=== PATIENT | male | born 1970 | race African-American/Black ===

== ENCOUNTER 2019-11-28 17:00 | Inpatient (IN) | payer OTHER ==
[2019-11-28 20:13] VITALS: BMI 23.1
--- NOTE | 2019-11-28 23:53 | HP ---
COWS - Scale Resting Pulse: 0= [place] 80 or Below Sweatin=Flushed/Facial Moisture Restless Observation: 0= Sits Still Pupil Size: 0= Normal to Room Light Bone or Joint Aches: 4=Acute Joint/Muscle Pain Runny Nose/ Eye Tearin= Runny Nose/Eyes GI Upset > 30mins: 0= None Tremor Observation: 0= None Yawning Observation: 0= None Anxiety or Irritability: 2=Irritable/Anxious Goose Flesh Skin: 0=Smooth Skin COWS Score: 10 CIWA Score - Admission Criteria [facility] Guidelines: Admission for Medically Managed Detox: Requires at least one of the followin. CIWA greater than 12 2. Seizures within the past 24 hours 3. Delirium tremens within the past 24 hours 4. Hallucinations within the past 24 hours 5. Acute intervention needed for co occurring medical disorder 6. Acute intervention needed for co occurring psychiatric disorder 7. Severe withdrawal that cannot be handled at a lower level of care (continued vomiting, continued diarrhea, abnormal vital signs) requiring intravenous medication and/or fluids 8. Admission [facility] Chief Complaint: c/o heroin withdrawal Allergies/Adverse Reactions: Allergies Allergy/AdvReac Type Severity Reaction Status Date / Time Penicillins Allergy Verified 11/29/19 01:34 History of Present Illness: HERE FOR HEROIN DETOX. CLIENT IS REFERRED BY OUT REACH. HE REPORTS DAILY HEROIN USE. LAST USE 1 DAY AGO. PRESENTS TODAY WITH C/O WITHDRAWAL SX'S. UTOX + PAUL, FEN, MOP, MTD. CLIENT DENIES MMTP OR RECENT DETOX/ HOSP. FEELS MTD IS CUT WITH HEROIN. DENIES IVDU, AVH, BLACKOUTS, DRUG OVERDOSE. DENIES ANY SIGNIFICANT PERIOD OF CLEAN TIME IN THE PAST 1 YEAR. HOMELESS, UNEMPLOYED. DENIES LEGALS Exam Limitations: No Limitations - Ebola screening Have you traveled outside of the country in the last 21 days: No Have you had contact with anyone from an Ebola affected area: No Have you been sick,other than usual withdrawal symptoms: No Do you have a fever: No - Review of Systems Constitutional: Chills, Loss of Appetite, Malaise, Night Sweats, Changes in sleep EENT: reports: Nose Congestion Respiratory: reports: No Symptoms reported Cardiac: reports: No Symptoms Reported GI: reports: Constipated (LBM 4 DAYS AGO), Nausea, Poor Appetite : reports: No Symptoms Reported Musculoskeletal: reports: Back Pain Integumentary: reports: Sweating Neuro: reports: No Symptoms reported Endocrine: reports: No Symptoms Reported Hematology: reports: No Symptoms Reported Psychiatric: reports: Orientated x3, Agitated (IRRITABLE), Anxious Other Systems: Reviewed and Negative Patient History - Patient Medical History Hx Anemia: No Hx Asthma: No Hx Chronic Obstructive Pulmonary Disease (COPD): No Hx Cancer: No Hx Cardiac Disorders: No Hx Congestive Heart Failure: No Hx Hypertension: No Hx Hypercholesterolemia: No Hx Pacemaker: No HX Cerebrovascular Accident: No Hx Seizures: No Hx Dementia: No Hx Diabetes: No Hx Gastrointestinal Disorders: No Hx Liver Disease: No Hx Genitourinary Disorders: No Hx Sexually Transmitted Disorders: No Hx Renal Disease (ESRD): No Hx Thyroid Disease: No Hx Human Immunodeficiency Virus (HIV): No Hx Hepatitis C: No Hx Depression: No Hx Suicide Attempt: No Hx Bipolar Disorder: No Hx Schizophrenia: No Other Medical History: DENIES - Patient Surgical History Past Surgical History: No - PPD History Previous Implant?: Yes Documented Results: Negative w/o proof Implanted On Prior [facility] Admission?: No PPD to be Administered?: Yes - Smoking Cessation Smoking history: Current every day smoker Have you smoked in the past 12 months: Yes Aproximately how many cigarettes per day: 2 Cigars Per Day: 0 Hx Chewing Tobacco Use: No Initiated information on smoking cessation: Yes 'Breaking Loose' booklet given: 11/28/19 - Substance & Tx. History Hx Alcohol Use: No Substance Use Type: Heroin Hx Substance Use Treatment: No - Substances abused Heroin Substance route: Inhalation Frequency: Daily Amount used: 5 to 6 bags Age of first use: 29 Date of last use: 11/27/19 Admission Physical Exam BHS - Vital Signs Vital Signs: Vital Signs - 24 hr 11/28/19 11/28/19 20:05 20:36 Temperature 98.4 F 98.4 F Pulse Rate 71 71 Respiratory 14 14 Rate Blood Pressure 101/67 101/67 - Physical General Appearance: Yes: Mild Distress, Irritable, Anxious HEENTM: Yes: EOMI, Normocephalic, Normal Voice, LUIS MIGUEL, Pharynx Normal, Other ( MISSING TEETH POOR DENTITION) Respiratory: Yes: Chest Non-Tender, Lungs Clear, Normal Breath Sounds, No Respiratory Distress, No Accessory Muscle Use Neck: Yes: No masses,lesions,Nodules, Supple, Trachea in good position Breast: Yes: Breasts Symetrical Cardiology: Yes: Regular Rhythm, Regular Rate, S1, S2 Abdominal: Yes: Normal Bowel Sounds, Non Tender, Soft Genitourinary: Yes: Within Normal Limits Back: Yes: Normal Inspection Musculoskeletal: Yes: full range of Motion, Gait Steady Extremities: Yes: Normal Capillary Refill, Normal Range of Motion, Non-Tender Neurological: Yes: Alert, Motor Strength 5/5 Integumentary: Yes: Clammy Lymphatic: Yes: Within Normal Limits - Diagnostic (1) Opioid dependence with withdrawal Current Visit: Yes Status: Acute (2) Nicotine dependence Current Visit: Yes Status: Acute Qualifiers: Nicotine product type: cigarettes Substance use status: uncomplicated Qualified Code(s): F17.210 - Nicotine dependence, cigarettes, uncomplicated Cleared for Admission S - Detox or Rehab [facility] Level of Care: Medically Managed Detox Regimen/Protocol: Methadone Claeared for Rehab Admission: No Breathalyzer - Breathalyzer Breathalyzer: 0 Urine Drug Screen - Test Device Lot number: [id number] Expiration date: 11/28/19 - Control Is test valid?: Yes - Results Drug screen NEGATIVE: No Urine drug screen results: PAUL-Cocaine, FEN-Fentanyl, MOP-Opiates, MTD-Methadone Inpatient Rehab Admission - Rehab Decision to Admit Inpatient rehab admission?: No
[2019-11-29] MEDS ORDERED: P-EPHED 60MG/TRIPROLIDI 2.5MG TABLET PO PRN (00:04)
[2019-11-29] MEDS ORDERED: MAG HYDROX/AL HYDROX/SIMETH 30 ML UNIT-DOSE CUP PO PRN (00:04)
[2019-11-29] MEDS ORDERED: ACETAMINOPHEN 325 MG TABLET (FP) PO PRN ×2 (00:04)
[2019-11-29] MEDS ORDERED: METHADONE HCL 10 MG TABLET (FOR DETOX USE ONLY) PO ONE ×2 (00:04→10:00)
[2019-11-29] MEDS ORDERED: MAGNESIUM CITRATE 300 ML BOTTLE PO PRN (00:04)
[2019-11-29] MEDS ORDERED: MENTHOL/PHENOL 1 EACH UD MM PRN (00:04)
[2019-11-29] MEDS ORDERED: guaiFENesin 200 MG/10 ML 10 ML UNIT-DOSE CUPS PO PRN (00:04)
[2019-11-29] MEDS ORDERED: hydrOXYzine PAMOATE 25 MG CAPSULE (FP) PO PRN (00:04)
[2019-11-29] MEDS ORDERED: cloNIDine HCL 0.1 MG TABLET PO PRN (00:04)
[2019-11-29] MEDS ORDERED: NICOTINE POLACRILEX 2 MG GUM BUC PRN (00:04)
[2019-11-29] MEDS ORDERED: MAGNESIUM HYDROX 2400MG/30ML ORAL SUSPENSION 30 ML CUP PO PRN (00:04)
[2019-11-29] MEDS ORDERED: DICYCLOMINE HCL 10 MG CAPSULE PO PRN (00:04)
[2019-11-29] MEDS ORDERED: BISMUTH SUBSALICYLATE 524 MG/30 ML UD PO PRN (00:04)
[2019-11-29] MEDS: METHOCARBAMOL 500 MG TABLET PO PRN ×3 (01:57→22:27)
[2019-11-29] MEDS: PRENATAL VITAMINS W/ FOLIC ACID TABLET (FP) PO SCH (09:34)
[2019-11-29] MEDS: NICOTINE 14 MG/24 HOURS TOPICAL PATCH TD SCH (09:36)
--- NOTE | 2019-11-29 10:45 | PN ---
BHS COWS - Scale Resting Pulse: 0= [place] 80 or Below Sweatin= No chills or Flushing Restless Observation: 0= Sits Still Pupil Size: 1= Pupils >than Normal Bone or Joint Aches: 1= Mild Discomfort Runny Nose/ Eye Tearin= Nasal Congestion GI Upset > 30mins: 1= Stomach Cramp Tremor Observation of Outstretched Hands: 1= Tremor [place], Not Seen Yawning Observation: 1= 1-2x During Session Anxiety or Irritability: 1=Feels Anxious/Irritable Goose Flesh Skin: 0=Smooth Skin COWS Score: 7 BHS Progress Note (SOAP) Subjective: 49 years old male admitted on 11/28/19 for opiate withdrawal sx management treating with methadone detox regiment reports too much methadone feeling uncomfortable modify methadone dosage to suit Mr Flores's preference Objective: 11/29/19 10:45 Vital Signs Temperature 98.7 F 11/29/19 08:42 Pulse Rate 65 11/29/19 08:42 Respiratory Rate 18 11/29/19 08:42 Blood Pressure 105/64 11/29/19 08:42 O2 Sat by Pulse Oximetry (%) 11/29/19 10:46 admission lab order had been cancelled reorder admission lab Assessment: 11/29/19 10:47 opiate withdrawal Plan: methadone regiment ekg with no comparison
--- NOTE | 2019-11-29 11:41 | EKG ---
Test Reason : Blood Pressure : / mmHG Vent. Rate : 066 BPM Atrial Rate : 066 BPM P-R Int : 168 ms QRS Dur : 088 ms QT Int : 398 ms P-R-T Axes : 029 078 031 degrees QTc Int : 417 ms NORMAL SINUS RHYTHM NORMAL ECG NO PREVIOUS ECGS AVAILABLE Confirmed by Michael Mantilla MD ([id number]) on 11/29/2019 11:40:43 AM Referred By: Confirmed By:Michael Mantilla MD
[2019-11-29] MEDS: clonazePAM 0.5 MG TABLET PO PRN ×2 (12:29→18:25)
[2019-11-29 18:20] LABS: PH,URINE 8.5 (5.0-8.0); URINE APPEARANCE CLEAR; URINE BILIRUBIN NEGATIVE (NEGATIVE); URINE COLOR YELLOW; URINE GLUCOSE (UA) NEGATIVE (NEGATIVE); URINE KETONE NEGATIVE (NEGATIVE); URINE LEUK ESTERASE NEGATIVE (NEGATIVE); URINE NITRITE NEGATIVE (NEGATIVE); URINE PROTEIN NEGATIVE (NEGATIVE); URINE UROBILINOGEN 0.2 mg/dL (0.2-1.0)
[2019-11-29] MEDS: THIAMINE HCL 100 MG TABLET (FP) PO SCH (22:27)
[2019-11-29] MEDS: MELATONIN 5 MG TABLETS PO PRN (22:27)
[2019-11-30] MEDS ORDERED: METHADONE HCL 5 MG TABLET (FOR DETOX USE ONLY) PO ONE (05:00)
--- NOTE | 2019-11-30 09:16 | PN ---
BHS COWS - Scale Resting Pulse: 0= [place] 80 or Below Sweatin= Chills/Flushing Restless Observation: 0= Sits Still Pupil Size: 1= Pupils >than Normal Bone or Joint Aches: 1= Mild Discomfort Runny Nose/ Eye Tearin= None GI Upset > 30mins: 1= Stomach Cramp Tremor Observation of Outstretched Hands: 1= Tremor [place], Not Seen Yawning Observation: 0= None Anxiety or Irritability: 1=Feels Anxious/Irritable Goose Flesh Skin: 0=Smooth Skin COWS Score: 6 BHS Progress Note (SOAP) Subjective: 49 years old male admitted on 11/28/19 for opiate withdrawal sx management treating with methadone detox regiment patient is actively involved with the behavior and psychosocial therapies groups and meetings discussed medication assisted treatment program and picking up narcan from pharmacy upon discharge Objective: 11/30/19 09:19 Vital Signs Temperature 98.2 F 11/30/19 06:26 Pulse Rate 59 L 11/30/19 06:26 Respiratory Rate 18 11/30/19 06:26 Blood Pressure 95/60 11/30/19 06:26 O2 Sat by Pulse Oximetry (%) Laboratory Last Values Urine Color Yellow 11/29/19 12:40 Urine Appearance Clear 11/29/19 12:40 Urine pH 8.5 (5.0-8.0) H 11/29/19 12:40 Ur Specific [place] 1.026 (1.010-1.035) 11/29/19 12:40 Urine Protein Negative (NEGATIVE) 11/29/19 12:40 Urine Glucose (UA) Negative (NEGATIVE) 11/29/19 12:40 Urine Ketones Negative (NEGATIVE) 11/29/19 12:40 Urine Blood Negative (NEGATIVE) 11/29/19 12:40 Urine Nitrite Negative (NEGATIVE) 11/29/19 12:40 Urine Bilirubin Negative (NEGATIVE) 11/29/19 12:40 Urine Urobilinogen 0.2 mg/dL (0.2-1.0) 11/29/19 12:40 Ur Leukocyte Esterase Negative (NEGATIVE) 11/29/19 12:40 lab noted Assessment: 11/30/19 09:19 opiate withdrawal Plan: methadone regiment
[2019-11-30 09:47] LABS: HEMATOCRIT 38.9 % (35.4-49); HEMOGLOBIN 12.9 GM/dL (11.7-16.9); MCH 29.6 pg (25.7-33.7); MCHC 33.1 g/dl (32.0-35.9); MEAN CELL VOLUME 89.2 fl (80-96); MEAN PLT VOLUME 6.7 fl (7.5-11.1); PLATELET COUNT 270 K/MM3 (134-434); RBC 4.36 M/mm3 (4.00-5.60); RDW 14.3 % (11.9-15.9); WHITE BLOOD COUNT 4.7 K/mm3 (4.0-10.0)
[2019-11-30 09:51] LABS: ALBUMIN 3.7 g/dl (3.4-5.0); BILIRUBIN,TOTAL 0.8 mg/dL (0.2-1); BLOOD UREA NITROGEN 15.7 mg/dL (7-18); CALCIUM 9.2 mg/dL (8.5-10.1); POTASSIUM 4.1 mmol/L (3.5-5.1); TOT PROT 7.6 g/dl (6.4-8.2)
[2019-11-30] MEDS ORDERED: METHADONE (DETOX) 20 MG, METHADONE (DETOX) 5 MG PO ONE (10:00)
[2019-11-30] MEDS: NICOTINE 14 MG/24 HOURS TOPICAL PATCH TD SCH (10:20)
[2019-11-30] MEDS: PRENATAL VITAMINS W/ FOLIC ACID TABLET (FP) PO SCH (10:21)
[2019-11-30] MEDS: CLOTRIMAZOLE 1% CREAM 15 GM TUBE TP SCH ×2 (12:40→22:51)
[2019-11-30] MEDS: clonazePAM 0.5 MG TABLET PO PRN (17:11)
[2019-11-30] MEDS: THIAMINE HCL 100 MG TABLET (FP) PO SCH (22:51)
[2019-12-01] MEDS ORDERED: METHADONE HCL 5 MG TABLET (FOR DETOX USE ONLY) PO ONE (05:00)
[2019-12-01] MEDS ORDERED: METHADONE HCL 10 MG TABLET (FOR DETOX USE ONLY) PO ONE (10:00)
[2019-12-01] MEDS: PRENATAL VITAMINS W/ FOLIC ACID TABLET (FP) PO SCH (10:35)
[2019-12-01] MEDS: NICOTINE 14 MG/24 HOURS TOPICAL PATCH TD SCH (10:36)
[2019-12-01] MEDS: CLOTRIMAZOLE 1% CREAM 15 GM TUBE TP SCH ×2 (10:36→22:40)
--- NOTE | 2019-12-01 10:54 | PN ---
BHS COWS - Scale Resting Pulse: 0= [place] 80 or Below Sweatin=Flushed/Facial Moisture Restless Observation: 0= Sits Still Pupil Size: 0= Normal to Room Light Bone or Joint Aches: 1= Mild Discomfort Runny Nose/ Eye Tearin= Runny Nose/Eyes GI Upset > 30mins: 0= None Tremor Observation of Outstretched Hands: 0= None Yawning Observation: 0= None Anxiety or Irritability: 2=Irritable/Anxious Goose Flesh Skin: 0=Smooth Skin COWS Score: 7 BHS Progress Note (SOAP) Subjective: Mr. Flores complains of difficulty sleeping, constipation, dry skin. Objective: 12/01/19 10:50 Laboratory Tests 11/29/19 11/30/19 11/30/19 12:40 08:00 08:00 WBC 4.7 RBC 4.36 Hgb 12.9 Hct 38.9 MCV 89.2 MCH 29.6 MCHC 33.1 RDW 14.3 Plt Count 270 MPV 6.7 L Sodium 140 Potassium 4.1 Chloride 104 Carbon Dioxide 29 Anion Gap 6 L BUN 15.7 Creatinine 1.0 Est GFR (CKD-EPI)AfAm 101.26 Est GFR (CKD-EPI)NonAf 87.37 Random Glucose 97 Calcium 9.2 Total Bilirubin 0.8 AST 16 ALT 17 Alkaline Phosphatase 72 Total Protein 7.6 Albumin 3.7 Urine Color Yellow Urine Appearance Clear Urine pH 8.5 H Ur Specific [place] 1.026 Urine Protein Negative Urine Glucose (UA) Negative Urine Ketones Negative Urine Blood Negative Urine Nitrite Negative Urine Bilirubin Negative Urine Urobilinogen 0.2 Ur Leukocyte Esterase Negative RPR Titer 11/30/19 08:00 WBC RBC Hgb Hct MCV MCH MCHC RDW Plt Count MPV Sodium Potassium Chloride Carbon Dioxide Anion Gap BUN Creatinine Est GFR (CKD-EPI)AfAm Est GFR (CKD-EPI)NonAf Random Glucose Calcium Total Bilirubin AST ALT Alkaline Phosphatase Total Protein Albumin Urine Color Urine Appearance Urine pH Ur Specific [place] Urine Protein Urine Glucose (UA) Urine Ketones Urine Blood Urine Nitrite Urine Bilirubin Urine Urobilinogen Ur Leukocyte Esterase RPR Titer Nonreactive Vital Signs - 24 hr 11/30/19 11/30/19 11/30/19 12:47 17:25 21:05 Temperature 98.5 F 99.8 F H 98.6 F Pulse Rate 69 59 L 73 Respiratory 18 18 16 Rate Blood Pressure 108/67 106/74 114/68 12/01/19 12/01/19 12/01/19 00:30 03:30 06:29 Temperature 98.1 F Pulse Rate 80 Respiratory 18 16 18 Rate Blood Pressure 126/87 12/01/19 08:35 Temperature 98.7 F Pulse Rate 65 Respiratory 18 Rate Blood Pressure 105/75 Pe Gnl: wdwn in no distress MS: awake, alert, nl mentation CN: EOMI, pupils 3mm Motor: moves all limbs normally Gait: steady in hallway Assessment: 12/01/19 10:51 1. Opioid use disorder 2. constipation relted to #1 3. complaints of dry skin 4, requests gabapentin for chronic leg and back pain Plan: 1. Opioid detox protocol, continue 2. Gabapentin 100 mg tid 3. Aveeno lotion
[2019-12-01] MEDS: GABAPENTIN 100 MG CAPSULE PO SCH ×2 (15:21→22:40)
--- NOTE | 2019-12-01 16:35 | CONSULT ---
[facility] Psychiatric Consult - Data Date of interview: 12/01/19 Admission source: [facility] Identifying data: Patient is a 49 year old single male, father of three, unemployed, homeless, and is not currently receiving financial assistance. This is patient's first admission to detox at [facility]. Patient admitted to for opiate and cocaine dependence. Substance Abuse History: Smoking Cessation. Smoking history: Current every day smoker. Have you smoked in the past 12 months: Yes. Aproximately how many cigarettes per day: 2. Cigars Per Day: 0. Hx Chewing Tobacco Use: No. Initiated information on smoking cessation: Yes. - Substance & Tx. History. Hx Alcohol Use: No. Substance Use Type: Heroin. Hx Substance Use Treatment: No. - Substances abused. Heroin. Substance route: Inhalation. Frequency: Daily. Amount used: 5 to 6 bags. Age of first use: 29. Date of last use: 01/11 Medical History: Denies. Endorses good health. Psychiatric History: Patient denies history of psychiatric hospitalization, outpatient care, and suicide attempt. At present patient reports poor sleep. Physical/Sexual Abuse/Trauma History: denies. Mental Status Exam - Mental Status Exam Alert and Oriented to: Time, Place, Person Cognitive Function: Good Patient Appearance: Well Groomed Mood: Withdrawn Affect: Mood Congruent Patient Behavior: Appropriate, Cooperative Speech Pattern: Clear, Appropriate Voice Loudness: Normal Thought Process: Intact, Goal Oriented Thought Disorder: Not Present Hallucinations: Denies Suicidal Ideation: Denies Homicidal Ideation: Denies Insight/Judgement: Poor Sleep: Poorly Appetite: Fair Muscle strength/Tone: Normal Gait/Station: Normal Psychiatric Findings - Problem List ([place] 1, 2,3) (1) Cocaine dependence Current Visit: Yes Status: Acute (2) Nicotine dependence Current Visit: Yes Status: Acute Qualifiers: Nicotine product type: cigarettes Substance use status: uncomplicated Qualified Code(s): F17.210 - Nicotine dependence, cigarettes, uncomplicated (3) Opioid dependence with withdrawal Current Visit: Yes Status: Acute (4) Substance-induced sleep disorder Current Visit: Yes Status: Acute - Initial Treatment Plan Initial Treatment Plan: Psychoeducation provided. Detoxification in progress. Will order Seroquel 50mg HS (as per patient's request). Benefits and side effects discussed. Verbal consent given.
[2019-12-01] MEDS: clonazePAM 0.5 MG TABLET PO PRN (18:08)
[2019-12-01] MEDS: THIAMINE HCL 100 MG TABLET (FP) PO SCH (22:40)
[2019-12-01] MEDS: QUEtiapine FUMARATE 50 MG TABLET PO SCH (22:40)
[2019-12-02] MEDS ORDERED: METHADONE HCL 10 MG TABLET (FOR DETOX USE ONLY) PO ONE (05:00)
[2019-12-02] MEDS: GABAPENTIN 100 MG CAPSULE PO SCH ×3 (06:21→21:44)
[2019-12-02] MEDS ORDERED: METHADONE (DETOX) 10 MG, METHADONE (DETOX) 5 MG PO ONE (10:00)
--- NOTE | 2019-12-02 10:33 | PN ---
BHS COWS - Scale Resting Pulse: 0= [place] 80 or Below Sweatin= Chills/Flushing Restless Observation: 1= Difficult to Sit Still Pupil Size: 0= Normal to Room Light Bone or Joint Aches: 2= Severe Diffuse Aches Runny Nose/ Eye Tearin= None GI Upset > 30mins: 0= None Tremor Observation of Outstretched Hands: 0= None Yawning Observation: 1= 1-2x During Session Anxiety or Irritability: 2=Irritable/Anxious Goose Flesh Skin: 0=Smooth Skin COWS Score: 7 S Progress Note (SOAP) Subjective: c/l chills, sweats, anxiety, and muscle aches. Objective: 12/02/19 10:34 Vital Signs 12/02/19 12/02/19 12/02/19 03:30 06:35 08:39 Temperature 97.2 F L 97.6 F Pulse Rate 62 68 Respiratory 16 18 18 Rate Blood Pressure 99/55 L 116/72 Laboratory Last Values WBC 4.7 K/mm3 (4.0-10.0) 11/30/19 08:00 RBC 4.36 M/mm3 (4.00-5.60) 11/30/19 08:00 Hgb 12.9 GM/dL (11.7-16.9) 11/30/19 08:00 Hct 38.9 % (35.4-49) 11/30/19 08:00 MCV 89.2 fl (80-96) 11/30/19 08:00 MCH 29.6 pg (25.7-33.7) 11/30/19 08:00 MCHC 33.1 g/dl (32.0-35.9) 11/30/19 08:00 RDW 14.3 % (11.9-15.9) 11/30/19 08:00 Plt Count 270 K/MM3 (134-434) 11/30/19 08:00 MPV 6.7 fl (7.5-11.1) L 11/30/19 08:00 Sodium 140 mmol/L (136-145) 11/30/19 08:00 Potassium 4.1 mmol/L (3.5-5.1) 11/30/19 08:00 Chloride 104 mmol/L (98-107) 11/30/19 08:00 Carbon Dioxide 29 mmol/L (21-32) 11/30/19 08:00 Anion Gap 6 MMOL/L (8-16) L 11/30/19 08:00 BUN 15.7 mg/dL (7-18) 11/30/19 08:00 Creatinine 1.0 mg/dL (0.55-1.3) 11/30/19 08:00 Est GFR (CKD-EPI)AfAm 101.26 11/30/19 08:00 Est GFR (CKD-EPI)NonAf 87.37 11/30/19 08:00 Random Glucose 97 mg/dL (74-106) 11/30/19 08:00 Calcium 9.2 mg/dL (8.5-10.1) 11/30/19 08:00 Total Bilirubin 0.8 mg/dL (0.2-1) 11/30/19 08:00 AST 16 U/L (15-37) 11/30/19 08:00 ALT 17 U/L (13-61) 11/30/19 08:00 Alkaline Phosphatase 72 U/L (45-117) 11/30/19 08:00 Total Protein 7.6 g/dl (6.4-8.2) 11/30/19 08:00 Albumin 3.7 g/dl (3.4-5.0) 11/30/19 08:00 Urine Color Yellow 11/29/19 12:40 Urine Appearance Clear 11/29/19 12:40 Urine pH 8.5 (5.0-8.0) H 11/29/19 12:40 Ur Specific [place] 1.026 (1.010-1.035) 11/29/19 12:40 Urine Protein Negative (NEGATIVE) 11/29/19 12:40 Urine Glucose (UA) Negative (NEGATIVE) 11/29/19 12:40 Urine Ketones Negative (NEGATIVE) 11/29/19 12:40 Urine Blood Negative (NEGATIVE) 11/29/19 12:40 Urine Nitrite Negative (NEGATIVE) 11/29/19 12:40 Urine Bilirubin Negative (NEGATIVE) 11/29/19 12:40 Urine Urobilinogen 0.2 mg/dL (0.2-1.0) 11/29/19 12:40 Ur Leukocyte Esterase Negative (NEGATIVE) 11/29/19 12:40 RPR Titer Nonreactive (NONREACTIVE) 11/30/19 08:00 Labs noted. Assessment: 12/02/19 10:35 AOX 3, in no respiratory distress. Full ROM, ambulating in the unit. Withdrawal symptoms. Plan: continue detox.
[2019-12-02] MEDS: CLOTRIMAZOLE 1% CREAM 15 GM TUBE TP SCH ×2 (11:40→21:55)
[2019-12-02] MEDS: NICOTINE 14 MG/24 HOURS TOPICAL PATCH TD SCH (11:40)
[2019-12-02] MEDS: PRENATAL VITAMINS W/ FOLIC ACID TABLET (FP) PO SCH (11:40)
[2019-12-02] MEDS: IBUPROFEN 400 MG TABLET (FP) PO PRN (19:44)
[2019-12-02] MEDS: THIAMINE HCL 100 MG TABLET (FP) PO SCH (21:44)
[2019-12-02] MEDS: MELATONIN 5 MG TABLETS PO PRN (21:44)
[2019-12-02] MEDS: QUEtiapine FUMARATE 50 MG TABLET PO SCH (21:44)
[2019-12-03] MEDS ORDERED: METHADONE HCL 5 MG TABLET (FOR DETOX USE ONLY) PO ONE (05:00)
[2019-12-03] MEDS: GABAPENTIN 100 MG CAPSULE PO SCH ×3 (06:22→21:32)
[2019-12-03] MEDS ORDERED: METHADONE HCL 10 MG TABLET (FOR DETOX USE ONLY) PO ONE ×2 (10:00)
[2019-12-03] MEDS: PRENATAL VITAMINS W/ FOLIC ACID TABLET (FP) PO SCH (10:02)
[2019-12-03] MEDS: CLOTRIMAZOLE 1% CREAM 15 GM TUBE TP SCH ×2 (10:02→21:34)
[2019-12-03] MEDS: NICOTINE 14 MG/24 HOURS TOPICAL PATCH TD SCH (10:02)
--- NOTE | 2019-12-03 14:30 | PN ---
BHS COWS - Scale Resting Pulse: 0= [place] 80 or Below Sweatin= Chills/Flushing Restless Observation: 0= Sits Still Pupil Size: 0= Normal to Room Light Bone or Joint Aches: 1= Mild Discomfort Runny Nose/ Eye Tearin= None GI Upset > 30mins: 0= None Tremor Observation of Outstretched Hands: 1= Tremor [place], Not Seen Yawning Observation: 0= None Anxiety or Irritability: 1=Feels Anxious/Irritable Goose Flesh Skin: 0=Smooth Skin COWS Score: 4 BHS Progress Note (SOAP) Subjective: 49 years old male admitted on 11/28/19 for opiate withdrawal sx management treating with methadone detox regiment feeling better today slept through the night less joints pain encourage narcan worm picker from pharmacy upon discharge Objective: 12/03/19 14:29 Vital Signs Temperature 99.1 F 12/03/19 12:46 Pulse Rate 71 12/03/19 12:46 Respiratory Rate 18 12/03/19 12:46 Blood Pressure 100/66 12/03/19 12:46 O2 Sat by Pulse Oximetry (%) Laboratory Last Values WBC 4.7 K/mm3 (4.0-10.0) 11/30/19 08:00 RBC 4.36 M/mm3 (4.00-5.60) 11/30/19 08:00 Hgb 12.9 GM/dL (11.7-16.9) 11/30/19 08:00 Hct 38.9 % (35.4-49) 11/30/19 08:00 MCV 89.2 fl (80-96) 11/30/19 08:00 MCH 29.6 pg (25.7-33.7) 11/30/19 08:00 MCHC 33.1 g/dl (32.0-35.9) 11/30/19 08:00 RDW 14.3 % (11.9-15.9) 11/30/19 08:00 Plt Count 270 K/MM3 (134-434) 11/30/19 08:00 MPV 6.7 fl (7.5-11.1) L 11/30/19 08:00 Sodium 140 mmol/L (136-145) 11/30/19 08:00 Potassium 4.1 mmol/L (3.5-5.1) 11/30/19 08:00 Chloride 104 mmol/L (98-107) 11/30/19 08:00 Carbon Dioxide 29 mmol/L (21-32) 11/30/19 08:00 Anion Gap 6 MMOL/L (8-16) L 11/30/19 08:00 BUN 15.7 mg/dL (7-18) 11/30/19 08:00 Creatinine 1.0 mg/dL (0.55-1.3) 11/30/19 08:00 Est GFR (CKD-EPI)AfAm 101.26 11/30/19 08:00 Est GFR (CKD-EPI)NonAf 87.37 11/30/19 08:00 Random Glucose 97 mg/dL (74-106) 11/30/19 08:00 Calcium 9.2 mg/dL (8.5-10.1) 11/30/19 08:00 Total Bilirubin 0.8 mg/dL (0.2-1) 11/30/19 08:00 AST 16 U/L (15-37) 11/30/19 08:00 ALT 17 U/L (13-61) 11/30/19 08:00 Alkaline Phosphatase 72 U/L (45-117) 11/30/19 08:00 Total Protein 7.6 g/dl (6.4-8.2) 11/30/19 08:00 Albumin 3.7 g/dl (3.4-5.0) 11/30/19 08:00 Urine Color Yellow 11/29/19 12:40 Urine Appearance Clear 11/29/19 12:40 Urine pH 8.5 (5.0-8.0) H 11/29/19 12:40 Ur Specific [place] 1.026 (1.010-1.035) 11/29/19 12:40 Urine Protein Negative (NEGATIVE) 11/29/19 12:40 Urine Glucose (UA) Negative (NEGATIVE) 11/29/19 12:40 Urine Ketones Negative (NEGATIVE) 11/29/19 12:40 Urine Blood Negative (NEGATIVE) 11/29/19 12:40 Urine Nitrite Negative (NEGATIVE) 11/29/19 12:40 Urine Bilirubin Negative (NEGATIVE) 11/29/19 12:40 Urine Urobilinogen 0.2 mg/dL (0.2-1.0) 11/29/19 12:40 Ur Leukocyte Esterase Negative (NEGATIVE) 11/29/19 12:40 RPR Titer Nonreactive (NONREACTIVE) 11/30/19 08:00 lab noted Assessment: 12/03/19 14:29 opiate withdrawal Plan: methadone regiment
[2019-12-03] MEDS: IBUPROFEN 400 MG TABLET (FP) PO PRN (21:31)
[2019-12-03] MEDS: QUEtiapine FUMARATE 50 MG TABLET PO SCH (21:32)
[2019-12-03] MEDS: THIAMINE HCL 100 MG TABLET (FP) PO SCH (21:32)
[2019-12-03] MEDS: MELATONIN 5 MG TABLETS PO PRN (21:33)
[2019-12-04] MEDS: GABAPENTIN 100 MG CAPSULE PO SCH (05:17)
[2019-12-04] MEDS ORDERED: METHADONE HCL 5 MG TABLET (FOR DETOX USE ONLY) PO ONE (06:00)
[2019-12-04 06:53] VITALS: BP 127/92; PULSE 76; TEMP 98
--- NOTE | 2019-12-04 09:01 | DS ---
[facility] Detox Discharge Summary Admission Date: 11/29/19 Discharge Date: 12/04/19 - History Present History: Opioid Dependence Additional Comments: 49 years old male admitted on 11/28/19 for opiate withdrawal sx management treated with methadone regiment Mr olson has completed the methadone regiment and tolerated well seen by psychiatrist resume seroquel patient is alert oriented x 3 cardiac s1s2 regular rate rhythm respiratory clear lungs bilaterally on auscultation extremities full range of motion Pertinent Past History: time for discharge: 35 minutes - Physical Exam Results Vital Signs: Vital Signs Temperature 98.0 F 12/04/19 05:11 Pulse Rate 76 12/04/19 05:11 Respiratory Rate 18 12/04/19 05:11 Blood Pressure 127/92 12/04/19 05:11 O2 Sat by Pulse Oximetry (%) Pertinent Admission Physical Exam Findings: opiate withdrawal Laboratory Last Values WBC 4.7 K/mm3 (4.0-10.0) 11/30/19 08:00 RBC 4.36 M/mm3 (4.00-5.60) 11/30/19 08:00 Hgb 12.9 GM/dL (11.7-16.9) 11/30/19 08:00 Hct 38.9 % (35.4-49) 11/30/19 08:00 MCV 89.2 fl (80-96) 11/30/19 08:00 MCH 29.6 pg (25.7-33.7) 11/30/19 08:00 MCHC 33.1 g/dl (32.0-35.9) 11/30/19 08:00 RDW 14.3 % (11.9-15.9) 11/30/19 08:00 Plt Count 270 K/MM3 (134-434) 11/30/19 08:00 MPV 6.7 fl (7.5-11.1) L 11/30/19 08:00 Sodium 140 mmol/L (136-145) 11/30/19 08:00 Potassium 4.1 mmol/L (3.5-5.1) 11/30/19 08:00 Chloride 104 mmol/L (98-107) 11/30/19 08:00 Carbon Dioxide 29 mmol/L (21-32) 11/30/19 08:00 Anion Gap 6 MMOL/L (8-16) L 11/30/19 08:00 BUN 15.7 mg/dL (7-18) 11/30/19 08:00 Creatinine 1.0 mg/dL (0.55-1.3) 11/30/19 08:00 Est GFR (CKD-EPI)AfAm 101.26 11/30/19 08:00 Est GFR (CKD-EPI)NonAf 87.37 11/30/19 08:00 Random Glucose 97 mg/dL (74-106) 11/30/19 08:00 Calcium 9.2 mg/dL (8.5-10.1) 11/30/19 08:00 Total Bilirubin 0.8 mg/dL (0.2-1) 11/30/19 08:00 AST 16 U/L (15-37) 11/30/19 08:00 ALT 17 U/L (13-61) 11/30/19 08:00 Alkaline Phosphatase 72 U/L (45-117) 11/30/19 08:00 Total Protein 7.6 g/dl (6.4-8.2) 11/30/19 08:00 Albumin 3.7 g/dl (3.4-5.0) 11/30/19 08:00 Urine Color Yellow 11/29/19 12:40 Urine Appearance Clear 11/29/19 12:40 Urine pH 8.5 (5.0-8.0) H 11/29/19 12:40 Ur Specific [place] 1.026 (1.010-1.035) 11/29/19 12:40 Urine Protein Negative (NEGATIVE) 11/29/19 12:40 Urine Glucose (UA) Negative (NEGATIVE) 11/29/19 12:40 Urine Ketones Negative (NEGATIVE) 11/29/19 12:40 Urine Blood Negative (NEGATIVE) 11/29/19 12:40 Urine Nitrite Negative (NEGATIVE) 11/29/19 12:40 Urine Bilirubin Negative (NEGATIVE) 11/29/19 12:40 Urine Urobilinogen 0.2 mg/dL (0.2-1.0) 11/29/19 12:40 Ur Leukocyte Esterase Negative (NEGATIVE) 11/29/19 12:40 RPR Titer Nonreactive (NONREACTIVE) 11/30/19 08:00 lab noted - Treatment Hospital Course: Detox Protocol Followed, Detoxed Safely, Responded well, Discharged Condition Good, Rehab Referral Accepted Patient has Accepted a Rehab Referral to: Read, Willing, and Able - Medication Discharge Medications: Ambulatory Orders Naloxone HCl [Narcan] 4 mg NS ASDIR PRN #1 spray 11/30/19 - Diagnosis (1) Nicotine dependence Status: Acute Qualifiers: Nicotine product type: cigarettes Substance use status: in withdrawal Qualified Code(s): F17.213 - Nicotine dependence, cigarettes, with withdrawal (2) Opioid dependence with withdrawal Status: Acute - AMA Did Patient Leave Against Medical Advice: No COWS (PN) - Opiate Withdrawal Resting Pulse: 0= [place] 80 or Below Sweatin= No chills or Flushing Restless Observation: 0= Sits Still Pupil Size: 0= Normal to Room Light Bone or Joint Aches: 0= None Runny Nose/ Eye Tearin= Nasal Congestion GI Upset > 30mins: 0= None Tremor Observation of Outstretched Hands: 0= None Yawning Observation: 0= None Anxiety or Irritability: 1=Feels Anxious/Irritable Goose Flesh Skin: 0=Smooth Skin COWS Score: 2
== END 2019-12-04 08:49 | disposition home or self-care (01) | DRG 773 ==
LOC: YASAS 17:00 → Y3N 11-29 00:47
PROVIDERS: ADMIT Allergy & Immunology; ATTEND Allergy & Immunology
PROC: HZ2ZZZZ Detoxification Services for Substance Abuse Treatment (ICD-10-PCS; principal; 2019-11-29)
DX: F11.23 Opioid dependence with withdrawal (principal); F14.20 Cocaine dependence, uncomplicated; F17.210 Nicotine dependence, cigarettes, uncomplicated; F19.282 Other psychoactive substance dependence with psychoactive substance-induced sleep disorder; M54.5 Low back pain; M79.606 Pain in leg, unspecified; Z88.0 Allergy status to penicillin; Z59.0 Homelessness
CPT/HCPCS: 36415; 80053; 81003; 85027; 86593; 93005; 93010

== ENCOUNTER 2020-05-20 14:04 | Inpatient (IN) | payer OTHER ==
--- NOTE | 2020-05-20 15:24 | BHS.RME ---
Substance Use & Tx History - Substance Use History Heroin Substance amount: 7-8 bags Frequency of use: Daily Substance route: Inhalation (ex: sniffing or snorting) Date of Last Use: 05/20/20 (First use age 29y. NO OD, No Narcan at home) Nicotine Substance amount: one pack Frequency of use: Daily Substance route: Smoking Date of Last Use: 05/20/20 (First use age 29 y) Physical/Psych/Mental Status - Behavior General Behavior: Decreased activity Eye Contact: Normal - Cooperativeness Cooperativeness: Cooperative - Thinking Thought Processes: Tight Thought content: Future oriented - Physical Health Problems Is patient presently having any pain?: No Does patient presently have any injuries (include location): No Does patient currently have a fever: No COWS - Scale Resting Pulse: 1= [place] 81-100 Sweatin=Flushed/Facial Moisture Restless Observation: 0= Sits Still Pupil Size: 0= Normal to Room Light Bone or Joint Aches: 2= Severe Diffuse Aches Runny Nose/ Eye Tearin= Runny Nose/Eyes GI Upset > 30mins: 2= Nausea/Diarrhea Tremor Observation: 0= None Yawning Observation: 0= None Anxiety or Irritability: 1=Feels Anxious/Irritable Goose Flesh Skin: 0=Smooth Skin COWS Score: 10
--- NOTE | 2020-05-20 17:13 | HP ---
COWS - Scale Resting Pulse: 1= NE 81-100 Sweatin=Flushed/Facial Moisture Restless Observation: 0= Sits Still Pupil Size: 0= Normal to Room Light Bone or Joint Aches: 2= Severe Diffuse Aches Runny Nose/ Eye Tearin= Runny Nose/Eyes GI Upset > 30mins: 2= Nausea/Diarrhea Tremor Observation: 0= None Yawning Observation: 0= None Anxiety or Irritability: 1=Feels Anxious/Irritable Goose Flesh Skin: 0=Smooth Skin COWS Score: 10 CIWA Score - Admission Criteria OAS Guidelines: Admission for Medically Managed Detox: Requires at least one of the followin. CIWA greater than 12 2. Seizures within the past 24 hours 3. Delirium tremens within the past 24 hours 4. Hallucinations within the past 24 hours 5. Acute intervention needed for co occurring medical disorder 6. Acute intervention needed for co occurring psychiatric disorder 7. Severe withdrawal that cannot be handled at a lower level of care (continued vomiting, continued diarrhea, abnormal vital signs) requiring intravenous medication and/or fluids 8. Admitting History and Physical - Admission Chief Complaint: Patient is a 49 year old male presenting for opiate detox. History Source: Patient Limitations to Obtaining History: No Limitations - Past Medical History [employer]: Yes: Other (Insomnia) Pulmonary: Yes: Asthma Psych: Yes: Addictions - Smoking History Smoking history: Current every day smoker Have you smoked in the past 12 months: Yes Aproximately how many cigarettes per day: 2 - Alcohol/Substance Use Hx Alcohol Use: No - Social History Usual Living Arrangement: Yes: Alone, Other (Homeless) Admission [facility] Chief Complaint: Patient is a 49 year old male presenting for opiate detox. Allergies/Adverse Reactions: Allergies Allergy/AdvReac Type Severity Reaction Status Date / Time Penicillins Allergy Verified 05/20/20 17:54 Exam Limitations: No Limitations - Review of Systems Constitutional: Chills, Fever EENT: reports: Other (rhinorhea). denies: Blurred Vision, Recent change in vision Respiratory: denies: Cough, Shortness of Breath, Wheezing Cardiac: denies: Chest Pain, Edema GI: denies: Nausea, Vomiting, Abdominal cramping Musculoskeletal: reports: Back Pain, Joint Pain Neuro: denies: Headache, Numbness Hematology: denies: Blood Clots, Easy Bleeding Patient History - Patient Medical History Hx Anemia: No Hx Asthma: No Hx Chronic Obstructive Pulmonary Disease (COPD): No Hx Cancer: No Hx Cardiac Disorders: No Hx Congestive Heart Failure: No Hx Hypertension: No Hx Hypercholesterolemia: No Hx Pacemaker: No HX Cerebrovascular Accident: No Hx Seizures: No Hx Dementia: No Hx Diabetes: No Hx Gastrointestinal Disorders: No Hx Liver Disease: No Hx Genitourinary Disorders: No Hx Sexually Transmitted Disorders: No Hx Renal Disease (ESRD): No Hx Thyroid Disease: No Hx Human Immunodeficiency Virus (HIV): No Hx Hepatitis C: No Hx Depression: No Hx Suicide Attempt: No Hx Bipolar Disorder: No Hx Schizophrenia: No - Patient Surgical History Past Surgical History: No Hx Neurologic Surgery: No Hx Cataract Extraction: No Hx Cardiac Surgery: No Hx Lung Surgery: No Hx Breast Surgery: No Hx Breast Biopsy: No Hx Abdominal Surgery: No Hx Appendectomy: No Hx Cholecystectomy: No Hx Genitourinary Surgery: No Hx Section: No Hx Orthopedic Surgery: No Anesthesia Reaction: No - PPD History Date: 12/01/19 - Smoking Cessation Smoking history: Current every day smoker Have you smoked in the past 12 months: Yes Aproximately how many cigarettes per day: 20 Cigars Per Day: 0 Hx Chewing Tobacco Use: No Initiated information on smoking cessation: Yes 'Breaking Loose' booklet given: 05/20/20 Admission Physical Exam [facility] - Vital Signs Vital Signs: Vital Signs - 24 hr 05/20/20 16:55 Temperature 98.2 F Pulse Rate 95 H Respiratory 18 Rate Blood Pressure 102/67 - Physical General Appearance: Yes: No Apparent Distress, Appropriately Dressed HEENTM: Yes: EOMI, Normal ENT Inspection, Normocephalic Respiratory: Yes: Lungs Clear, Normal Breath Sounds, No Respiratory Distress, No Accessory Muscle Use Neck: Yes: Supple Cardiology: Yes: Regular Rhythm, Regular Rate, S1, S2 Musculoskeletal: Yes: full range of Motion Extremities: Yes: Normal Range of Motion Neurological: Yes: Fully Oriented, Motor Strength 5/5 Integumentary: Yes: Dry, Warm - Diagnostic (1) Opioid use disorder Current Visit: Yes Status: Chronic Cleared for Admission S - Detox or Rehab [facility] Level of Care: Medically Managed Detox Regimen/Protocol: Methadone Breathalyzer - Breathalyzer Breathalyzer: 0 Vital Signs - Vital Signs Temperature: 98.2 F Temperature source: Oral Pulse Rate: 95 Respiratory Rate: 18 Blood Pressure: 102/67 BP Location: Left Arm Blood Pressure position: Sitting - Height Height: 6 ft 2 in - Weight Weight: 170 g Weight measurement method: Standing scale - BMI Body Mass Index (BMI): 0.0 Urine Drug Screen - Test Device Lot number: [id number] Expiration date: 06/23/21 - Control Is test valid?: Yes - Results Drug screen NEGATIVE: No Urine drug screen results: PAUL-Cocaine, FEN-Fentanyl, MOP-Opiates, MTD- Methadone, BZO-Benzodiazepines Inpatient Rehab Admission - Rehab Decision to Admit Inpatient rehab admission?: No
[2020-05-20] MEDS ORDERED: BISMUTH SUBSALICYLATE 524 MG/30 ML UD PO PRN (17:20)
[2020-05-20] MEDS ORDERED: MAGNESIUM HYDROX 2400MG/30ML ORAL SUSPENSION 30 ML CUP PO PRN (17:20)
[2020-05-20] MEDS ORDERED: MAGNESIUM CITRATE 300 ML BOTTLE PO PRN (17:20)
[2020-05-20] MEDS ORDERED: ONDANSETRON *ODT* 4 MG TABLET SL ONE (17:20)
[2020-05-20] MEDS ORDERED: IBUPROFEN 400 MG TABLET (FP) PO PRN (17:20)
[2020-05-20] MEDS ORDERED: NICOTINE POLACRILEX 2 MG GUM BUC PRN (17:20)
[2020-05-20] MEDS ORDERED: MAG HYDROX/AL HYDROX/SIMETH 30 ML UNIT-DOSE CUP PO PRN (17:20)
[2020-05-20] MEDS ORDERED: MENTHOL/PHENOL 1 EACH UD MM PRN (17:20)
[2020-05-20] MEDS ORDERED: METHADONE HCL 10 MG TABLET (FOR DETOX USE ONLY) PO ONE ×2 (17:20→17:37)
[2020-05-20] MEDS ORDERED: ACETAMINOPHEN 325 MG TABLET (FP) PO PRN ×2 (17:20)
[2020-05-20] MEDS ORDERED: hydrOXYzine PAMOATE 25 MG CAPSULE (FP) PO PRN (17:35)
[2020-05-20] MEDS ORDERED: ONDANSETRON *ODT* 4 MG TABLET SL PRN (17:36)
[2020-05-20] MEDS ORDERED: cloNIDine HCL 0.1 MG TABLET PO PRN (17:37)
--- NOTE | 2020-05-20 17:40 | PN ---
Teaching Attending Note Name of Resident: Jeff Ugalde ATTENDING PHYSICIAN STATEMENT I saw and evaluated the patient. I reviewed the resident's note and discussed the case with the resident. I agree with the resident's findings and plan as documented. SUBJECTIVE: 49 yr old male w/ opioid use reports 7 bags/day via inhalation , latest use today 5 a.m. Planning [facility] after d/c . OBJECTIVE:wnwd Vital Signs - 24 hr 05/20/20 05/20/20 16:55 17:19 Temperature 98.2 F 98.2 F Pulse Rate 95 H 95 H Respiratory 18 18 Rate Blood Pressure 102/67 102/67 ASSESSMENT AND PLAN: OUD - Methadone detox
[2020-05-20] MEDS ORDERED: hydrOXYzine PAMOATE 25 MG CAPSULE (FP) PO SCH (18:00)
[2020-05-20] MEDS: cloNIDine HCL 0.1 MG TABLET PO PRN (18:54)
[2020-05-20] MEDS: NICOTINE 21 MG/24 HOURS TOPICAL PATCH TD SCH (18:55)
[2020-05-20] MEDS ORDERED: MASKS NR ONE (20:11)
[2020-05-20] MEDS: THIAMINE HCL 100 MG TABLET (FP) PO SCH (21:56)
[2020-05-20] MEDS ORDERED: MELATONIN 5 MG TABLETS PO SCH (22:00)
[2020-05-21] MEDS ORDERED: MASKS NR ONE (06:35)
--- NOTE | 2020-05-21 09:24 | EKG ---
Test Reason : Blood Pressure : / mmHG Vent. Rate : 057 BPM Atrial Rate : 057 BPM P-R Int : 166 ms QRS Dur : 094 ms QT Int : 450 ms P-R-T Axes : 034 077 040 degrees QTc Int : 438 ms SINUS BRADYCARDIA WITH OCCASIONAL PREMATURE VENTRICULAR COMPLEXES OTHERWISE NORMAL ECG WHEN COMPARED WITH ECG OF 29-NOV-2019 09:54, PREMATURE VENTRICULAR COMPLEXES ARE NOW PRESENT Confirmed by MD SHERYL, PATRICIA ([id number]) on 05/21/2020 9:24:26 AM Referred By: Confirmed By:PATRICIA SAUCEDO MD
--- NOTE | 2020-05-21 09:27 | PN ---
BHS COWS - Scale Resting Pulse: 1= [place] 81-100 Sweatin= Chills/Flushing Restless Observation: 1= Difficult to Sit Still Pupil Size: 0= Normal to Room Light Bone or Joint Aches: 2= Severe Diffuse Aches Runny Nose/ Eye Tearin= Nasal Congestion GI Upset > 30mins: 0= None Tremor Observation of Outstretched Hands: 1= Tremor Ent[place], Not Seen Yawning Observation: 1= 1-2x During Session Anxiety or Irritability: 2=Irritable/Anxious Goose Flesh Skin: 0=Smooth Skin COWS Score: 10 BHS Progress Note (SOAP) Subjective: sweats mild shakes body aches restless agitation Objective: 05/21/20 09:27 Vital Signs Temperature 98.2 F 05/21/20 09:24 Pulse Rate 95 H 05/21/20 09:24 Respiratory Rate 18 05/21/20 09:24 Blood Pressure 102/67 05/21/20 09:24 O2 Sat by Pulse Oximetry (%) 97 05/21/20 05:28 labs pending [id number] ambulating no acute distress Assessment: 05/21/20 09:27 withdrawals Plan: continue detox increase fluids pending labs
--- NOTE | 2020-05-21 09:54 | CONSULT ---
[facility] Psychiatric Consult - Data Date of interview: 05/21/20 Admission source: Self-referred Identifying data: Mr Flores is a 49 years old single Black male, father of 2 children, unemployed with no source of income, homeless seeking detox treatment for heroin and cocaine Substance Abuse History: Reports history of heroin and cocaine use. Refer to addiction counselor's summary for further information Medical History: Significant for bronchial asthma. Smokes cigarettes 1 ppd Psychiatric History: Patient is known for 3 prvious admission to this facility. He denies history of previous psychiatric treatment. However, reports feeling depressed and sleeping poorly Physical/Sexual Abuse/Trauma History: Denies history of abuse as a child or DV relationship as an adult Mental Status Exam - Mental Status Exam Alert and Oriented to: Time, Place, Person Cognitive Function: Fair Patient Appearance: Disheveled Mood: Depressed Affect: Appropriate Patient Behavior: Cooperative Speech Pattern: Clear Voice Loudness: Normal Thought Process: Intact, Goal Oriented Hallucinations: Denies Suicidal Ideation: Denies Homicidal Ideation: Denies Insight/Judgement: Poor Sleep: Poorly Appetite: Poor Gait/Station: Normal Psychiatric Findings - Problem List ([place] 1, 2,3) (1) Substance induced mood disorder Current Visit: Yes Status: Acute (2) Substance-induced sleep disorder Current Visit: Yes Status: Acute (3) Opioid dependence with withdrawal Current Visit: No Status: Acute (4) Cocaine dependence Current Visit: No Status: Acute (5) Nicotine dependence Current Visit: No Status: Chronic Qualifiers: Nicotine product type: cigarettes Substance use status: in withdrawal Qualified Code(s): F17.213 - Nicotine dependence, cigarettes, with withdrawal (6) Bronchial asthma Current Visit: Yes Status: Chronic - Initial Treatment Plan Initial Treatment Plan: 1) Start Melatonin 10 mg po HS prn for insomnia. 2) Continue inpatient detoxification
[2020-05-21 09:58] LABS: HEMATOCRIT 36.5 % (35.4-49); HEMOGLOBIN 11.9 GM/dL (11.7-16.9); MCH 29.3 pg (25.7-33.7); MCHC 32.7 g/dl (32.0-35.9); MEAN CELL VOLUME 89.8 fl (80-96); MEAN PLT VOLUME 6.8 fl (7.5-11.1); PLATELET COUNT 219 K/MM3 (134-434); RBC 4.07 M/mm3 (4.00-5.60); RDW 15.1 % (11.9-15.9)
[2020-05-21] MEDS ORDERED: MELATONIN 5 MG TABLETS PO PRN (09:59)
[2020-05-21] MEDS ORDERED: METHADONE HCL 5 MG TABLET (FOR DETOX USE ONLY) PO ONE (10:00)
[2020-05-21] MEDS ORDERED: METHADONE (DETOX) 20 MG, METHADONE (DETOX) 5 MG PO ONE (10:00)
[2020-05-21] MEDS: METHOCARBAMOL 500 MG TABLET PO PRN ×2 (10:03→22:07)
[2020-05-21] MEDS: NICOTINE 21 MG/24 HOURS TOPICAL PATCH TD SCH (10:03)
[2020-05-21] MEDS: PRENATAL VITAMINS W/ FOLIC ACID TABLET (FP) PO SCH (10:04)
[2020-05-21 10:11] LABS: ALBUMIN 3.4 g/dl (3.4-5.0); BILIRUBIN,TOTAL 0.5 mg/dL (0.2-1); BLOOD UREA NITROGEN 12.3 mg/dL (7-18); CALCIUM 8.9 mg/dL (8.5-10.1); CREATININE 0.9 mg/dL (0.55-1.3); POTASSIUM 4.1 mmol/L (3.5-5.1); TOT PROT 7.4 g/dl (6.4-8.2)
[2020-05-21] MEDS: THIAMINE HCL 100 MG TABLET (FP) PO SCH (22:07)
[2020-05-21] MEDS: cloNIDine HCL 0.1 MG TABLET PO PRN (22:53)
[2020-05-22] MEDS ORDERED: METHADONE HCL 10 MG TABLET (FOR DETOX USE ONLY) PO ONE ×2 (10:00)
[2020-05-22] MEDS ORDERED: COLLOIDAL OATMEAL 1 BAR EACH TP ONE (10:00)
--- NOTE | 2020-05-22 10:00 | PN ---
BHS COWS - Scale Resting Pulse: 0= SD 80 or Below Sweatin= Chills/Flushing Restless Observation: 1= Difficult to Sit Still Pupil Size: 0= Normal to Room Light Bone or Joint Aches: 1= Mild Discomfort Runny Nose/ Eye Tearin= None GI Upset > 30mins: 0= None Tremor Observation of Outstretched Hands: 0= None Yawning Observation: 0= None Anxiety or Irritability: 0= None Goose Flesh Skin: 0=Smooth Skin COWS Score: 3 BHS Progress Note (SOAP) Subjective: dry/itchy skin because of the soap in the dispensary Objective: 05/22/20 10:09 Vital Signs Temperature 97.3 F L 05/22/20 08:29 Pulse Rate 60 05/22/20 08:29 Respiratory Rate 18 05/22/20 08:29 Blood Pressure 102/59 L 05/22/20 08:29 O2 Sat by Pulse Oximetry (%) 99 05/22/20 08:29 Laboratory Tests 05/20/20 05/21/20 05/21/20 18:15 08:00 08:00 WBC 6.0 RBC 4.07 Hgb 11.9 Hct 36.5 MCV 89.8 MCH 29.3 MCHC 32.7 RDW 15.1 Plt Count 219 MPV 6.8 L Sodium Potassium Chloride Carbon Dioxide Anion Gap BUN Creatinine Est GFR (CKD-EPI)AfAm Est GFR (CKD-EPI)NonAf Random Glucose Calcium Total Bilirubin AST ALT Alkaline Phosphatase Total Protein Albumin Syphilis Serology Non-reactive COVID-19 ([facility]) Not detected 05/21/20 08:00 WBC RBC Hgb Hct MCV MCH MCHC RDW Plt Count MPV Sodium 139 Potassium 4.1 Chloride 106 Carbon Dioxide 27 Anion Gap 7 L BUN 12.3 Creatinine 0.9 Est GFR (CKD-EPI)AfAm 115.02 Est GFR (CKD-EPI)NonAf 99.24 Random Glucose 88 Calcium 8.9 Total Bilirubin 0.5 AST 22 ALT 21 Alkaline Phosphatase 77 Total Protein 7.4 Albumin 3.4 Syphilis Serology COVID-19 ([facility]) labs noted covid results still pending. microbiology was called [phone] to please call [facility] and have result rushed because pt is being d/c tomorrow. microbiology will follow up. aaox3 ambulating no acute distress Assessment: 05/22/20 10:10 mild withdrawals Plan: continue detox d/c in am
[2020-05-22] MEDS: NICOTINE 21 MG/24 HOURS TOPICAL PATCH TD SCH (10:11)
[2020-05-22] MEDS: PRENATAL VITAMINS W/ FOLIC ACID TABLET (FP) PO SCH (10:12)
[2020-05-22] MEDS: MINERAL OIL/PETROLAT/WATER TOPICAL CREAM 113 GM JAR TP SCH ×2 (10:14→23:00)
[2020-05-22] MEDS: cloNIDine HCL 0.1 MG TABLET PO PRN (18:16)
[2020-05-22] MEDS: THIAMINE HCL 100 MG TABLET (FP) PO SCH (23:00)
[2020-05-23] MEDS ORDERED: METHADONE HCL 5 MG TABLET (FOR DETOX USE ONLY) PO ONE (06:00)
[2020-05-23 06:15] VITALS: BP 112/67; PULSE 88; TEMP 98
[2020-05-23] MEDS ORDERED: METHADONE (DETOX) 10 MG, METHADONE (DETOX) 5 MG PO ONE (10:00)
--- NOTE | 2020-05-23 11:00 | DS ---
[facility] Detox Discharge Summary Admission Date: 05/20/20 Discharge Date: 05/23/20 - History Present History: Cocaine Dependence, Opioid Dependence - Physical Exam Results Vital Signs: Vital Signs Temperature 98 F 05/23/20 06:13 Pulse Rate 88 05/23/20 06:13 Respiratory Rate 18 05/23/20 06:13 Blood Pressure 112/67 05/23/20 06:13 O2 Sat by Pulse Oximetry (%) 96 05/23/20 06:13 Pertinent Admission Physical Exam Findings: Vital Signs Temperature 98 F 05/23/20 06:13 Pulse Rate 88 05/23/20 06:13 Respiratory Rate 18 05/23/20 06:13 Blood Pressure 112/67 05/23/20 06:13 O2 Sat by Pulse Oximetry (%) 96 05/23/20 06:13 Laboratory Tests 05/20/20 05/21/20 05/21/20 18:15 08:00 08:00 WBC 6.0 RBC 4.07 Hgb 11.9 Hct 36.5 MCV 89.8 MCH 29.3 MCHC 32.7 RDW 15.1 Plt Count 219 MPV 6.8 L Sodium Potassium Chloride Carbon Dioxide Anion Gap BUN Creatinine Est GFR (CKD-EPI)AfAm Est GFR (CKD-EPI)NonAf Random Glucose Calcium Total Bilirubin AST ALT Alkaline Phosphatase Total Protein Albumin Syphilis Serology Non-reactive COVID-19 ([facility]) Not detected 05/21/20 08:00 WBC RBC Hgb Hct MCV MCH MCHC RDW Plt Count MPV Sodium 139 Potassium 4.1 Chloride 106 Carbon Dioxide 27 Anion Gap 7 L BUN 12.3 Creatinine 0.9 Est GFR (CKD-EPI)AfAm 115.02 Est GFR (CKD-EPI)NonAf 99.24 Random Glucose 88 Calcium 8.9 Total Bilirubin 0.5 AST 22 ALT 21 Alkaline Phosphatase 77 Total Protein 7.4 Albumin 3.4 Syphilis Serology COVID-19 ([facility]) aaox3 ambulating no acute distress lungs CTA - Treatment Hospital Course: Detox Protocol Followed, Detoxed Safely, Responded well, Discharged Condition Good, Rehab Referral Accepted - Medication Discharge Medications: Ambulatory Orders NK [No Known Home Medication] 05/20/20 - Diagnosis (1) Cocaine dependence Status: Chronic Qualifiers: Substance use status: uncomplicated Qualified Code(s): F14.20 - Cocaine dependence, uncomplicated (2) Opioid dependence with withdrawal Status: Chronic (3) Substance induced mood disorder Status: Acute (4) Substance-induced sleep disorder Status: Acute (5) Nicotine dependence Status: Chronic Qualifiers: Nicotine product type: cigarettes Substance use status: uncomplicated Qualified Code(s): F17.210 - Nicotine dependence, cigarettes, uncomplicated - AMA Did Patient Leave Against Medical Advice: No
[2020-05-24] MEDS ORDERED: METHADONE HCL 10 MG TABLET (FOR DETOX USE ONLY) PO ONE (10:00)
[2020-05-25] MEDS ORDERED: METHADONE HCL 5 MG TABLET (FOR DETOX USE ONLY) PO ONE (06:00)
== END 2020-05-23 08:56 | disposition home or self-care (01) | DRG 773 ==
LOC: YASAS 14:04 → Y6N 18:06
PROVIDERS: ADMIT Allergy & Immunology; ATTEND Allergy & Immunology
PROC: HZ2ZZZZ Detoxification Services for Substance Abuse Treatment (ICD-10-PCS; principal; 2020-05-20)
DX: F11.23 Opioid dependence with withdrawal (principal); F14.20 Cocaine dependence, uncomplicated; F17.210 Nicotine dependence, cigarettes, uncomplicated; F19.282 Other psychoactive substance dependence with psychoactive substance-induced sleep disorder; F19.24 Other psychoactive substance dependence with psychoactive substance-induced mood disorder; J45.909 Unspecified asthma, uncomplicated; L85.3 Xerosis cutis; Z56.0 Unemployment, unspecified; Z59.0 Homelessness; Z88.0 Allergy status to penicillin
CPT/HCPCS: 36415; 80053; 85027; 86780; 93005; 93010; J0735; U0003

== ENCOUNTER 2021-05-25 13:06 | Inpatient (IN) | payer OTHER ==
[2021-05-25 13:44] VITALS: BMI 26.2
[2021-05-25] MEDS ORDERED: methaDONE HCL 10 MG TABLET (FOR DETOX USE ONLY) PO ONE (19:59)
[2021-05-25] MEDS ORDERED: cloNIDine HCL 0.1 MG TABLET PO PRN (19:59)
[2021-05-25] MEDS ORDERED: MAGNESIUM CITRATE 300 ML BOTTLE PO PRN (19:59)
[2021-05-25] MEDS ORDERED: IBUPROFEN 400 MG TABLET (FP) PO PRN (19:59)
[2021-05-25] MEDS ORDERED: BISMUTH SUBSALICYLATE 524 MG/30 ML PO PRN (19:59)
[2021-05-25] MEDS ORDERED: MAG HYDROX/AL HYDROX/SIMETH 30 ML UNIT-DOSE CUP PO PRN (19:59)
[2021-05-25] MEDS ORDERED: ACETAMINOPHEN 325 MG TABLET (FP) PO PRN ×2 (19:59)
[2021-05-25] MEDS ORDERED: MENTHOL/PHENOL 1 EACH UD MM PRN (19:59)
[2021-05-25] MEDS ORDERED: NICOTINE POLACRILEX 2 MG GUM BUC PRN (19:59)
[2021-05-25] MEDS ORDERED: ONDANSETRON *ODT* 4 MG TABLET SL PRN (19:59)
[2021-05-25] MEDS ORDERED: MAGNESIUM HYDROX 2400MG/30ML ORAL SUSPENSION 30 ML CUP PO PRN (19:59)
[2021-05-25] MEDS: THIAMINE HCL 100 MG TABLET (FP) PO SCH (21:28)
[2021-05-25] MEDS: MELATONIN 5 MG TABLETS PO SCH (21:28)
[2021-05-26] MEDS ORDERED: methaDONE HCL 10 MG TABLET (FOR DETOX USE ONLY) ONE (09:44)
[2021-05-26] MEDS: METHOCARBAMOL 500 MG TABLET PO PRN ×2 (09:57→19:42)
[2021-05-26] MEDS ORDERED: NICOTINE 21 MG/24 HOURS TOPICAL PATCH TD SCH (10:00)
[2021-05-26] MEDS ORDERED: PRENATAL VITAMINS W/ FOLIC ACID TABLET (FP) PO SCH (10:00)
[2021-05-26 16:56] VITALS: TEMP 96.9
[2021-05-26 21:25] VITALS: BP 112/67; PULSE 58
[2021-05-26] MEDS: THIAMINE HCL 100 MG TABLET (FP) PO SCH (23:41)
[2021-05-26] MEDS: MELATONIN 5 MG TABLETS PO SCH (23:41)
[2021-05-27] MEDS ORDERED: methaDONE HCL 10 MG TABLET (FOR DETOX USE ONLY) PO ONE (10:00)
[2021-05-29] MEDS ORDERED: methaDONE HCL 10 MG TABLET (FOR DETOX USE ONLY) PO ONE (10:00)
== END 2021-05-27 07:57 | disposition left against medical advice (07) | DRG 770 ==
LOC: YASAS 13:06 → Y6N 20:48 → Y3N 20:53
PROVIDERS: ADMIT Allergy & Immunology; ATTEND Allergy & Immunology
PROC: HZ2ZZZZ Detoxification Services for Substance Abuse Treatment (ICD-10-PCS; principal; 2021-05-25)
DX: F11.23 Opioid dependence with withdrawal (principal); F14.20 Cocaine dependence, uncomplicated; F17.210 Nicotine dependence, cigarettes, uncomplicated; F19.24 Other psychoactive substance dependence with psychoactive substance-induced mood disorder; F19.282 Other psychoactive substance dependence with psychoactive substance-induced sleep disorder; J45.20 Mild intermittent asthma, uncomplicated; Z88.0 Allergy status to penicillin; Z56.0 Unemployment, unspecified
CPT/HCPCS: 93005; 93010; C9803; Q0162; U0003; U0005